=== PATIENT | male | born 1965 | race Caucasian/White ===

== ENCOUNTER 2016-08-25 09:14 | Day surgery (SDC) | payer SELFPAY ==
[~2016-08-25] VITALS: Ht 172.7 cm
[~2016-08-25 09:14] MED LIST: KLONOPIN DPS1 MG PO; LIBRIUM-DPS25 MG PO; TYLENOL DPS325 MG PO; ULTRAM DPS50 MG PO
--- NOTE | 2016-09-02 08:02 | OR ---
ADMIT: 08/25/2016 RM/LOC: [facility] MR#: [id number] 26[address] [facility] [address] [place], [place] [address] YONNY STEWART [address] [place] [address] Operative/Delivery Room Report SEX: M AGE: 51 : 1965 SURGERY DATE: 08/25/2016 SURGEON: Valentino Beyer MD HIM ASSISTANT: None. PREOPERATIVE DIAGNOSES: 1. Bilateral shoulder arthritis. 2. Chronic shoulder pain. POSTOPERATIVE DIAGNOSES: 1. Bilateral shoulder arthritis. 2. Chronic shoulder pain. OPERATION: Bilateral shoulder joint injection, anterior approach. INDICATIONS FOR PROCEDURE: The patient is a pleasant gentleman with history of chronic bilateral shoulder pain secondary to above-mentioned diagnoses, come here for planned bilateral shoulder joint injection. ANESTHESIA: Local without sedation. ESTIMATED BLOOD LOSS: Zero. COMPLICATIONS: None immediately evident. DESCRIPTION OF THE PROCEDURE: After patient was seen in preoperative area, vital signs were taken. Prior to procedure, the risks, benefits, and alternative therapies were discussed at length. Patient consent was obtained and updated. The patient was taken to Fluoroscopy Suite and placed on a fluoroscopy table in a prone position. Pressure points were padded to comfort, monitors applied and a timeout performed. C-arm was brought in to identify the right shoulder joint. Lidocaine plain, 1%, approximately 1 mL was used to anesthetize the skin, underlying subcutaneous tissue. A 3.5 inch 22-gauge curved-tip needle was then advanced through the anesthetized skin and placed into the right shoulder joint space. Isovue-300 was injected into joint and showed good spread into the shoulder joint. After correct placement was confirmed, 3 mL of 1% lidocaine and 40 mg ADMIT: 08/25/2016 RM/LOC: [facility] MR#: [id number] [place] [address] [place] [id number] YONNY STEWART [address] [place] [address] Operative/Delivery Room Report SEX: M AGE: 51 : 1965 of Depo-Medrol were injected. Then moved on to the left side and repeated the same procedure. The patient tolerated the procedure well without any complications. The patient was then brought to PACU where he recovered nicely. PLAN: The patient was examined after the conclusion of the procedure and had 80% reduction of pain. Discharge instructions were given, followup scheduled. The patient was discharged home with a driver guide. EDIT: 08/30/2016 1510 shaw Beyer MD/ kalee JOB #: [id number] CC: Valentino Beyer, Attending Physician . [facility] ([place], [place]), Family Physician
== END 2016-08-25 11:15 | disposition home or self-care (01) ==
LOC: SSS 09:14
PROC: 3E0U3BZ Introduction of Anesthetic Agent into Joints, Percutaneous Approach (ICD-10-PCS; principal; 2016-08-25)
PROC: 3E0U33Z Introduction of Anti-inflammatory into Joints, Percutaneous Approach (ICD-10-PCS; principal; 2016-08-25)
DX: G89.29 Other chronic pain (principal); M25.312 Other instability, left shoulder; M25.311 Other instability, right shoulder; M12.819 Other specific arthropathies, not elsewhere classified, unspecified shoulder; M53.3 Sacrococcygeal disorders, not elsewhere classified; F17.200 Nicotine dependence, unspecified, uncomplicated; I10 Essential (primary) hypertension; F25.9 Schizoaffective disorder, unspecified; Z79.899 Other long term (current) drug therapy; Z88.2 Allergy status to sulfonamides

== ENCOUNTER 2016-10-15 17:29 | Emergency (ER) | payer SELFPAY ==
--- NOTE | 2016-10-16 09:21 | ER ---
ADMIT: 10/15/2016 RM/LOC: ER [facility] MR#: [id number] [facility] [address] [place] [id number] YONNY STEWART [address] [place] [address] Emergency Room Report SEX: M AGE: 51 : 1965 DATE: 10/15/2016 TIME: 1729 hours. Please refer to my T-sheet for complete H and P. HISTORY OF PRESENT ILLNESS: Briefly, the patient comes with abdominal pain started about 9 this morning. He has been out of his proton pump inhibitor. He says it is a burning-type pain, nauseous. He has been maybe a little constipated. He has a history of chronic pain, bipolar, developmentally delayed. He smokes a pack of cigarettes a day. History of meth and substance abuse in the past. He says he has been clean for 3 weeks. PHYSICAL EXAMINATION: VITAL SIGNS: Blood pressure 146/103, pulse 70, respirations 16, temp 98.2, and sat 98%. GENERAL: No acute distress. HEENT: Grossly normal. LUNGS: Clear. HEART: Regular. ABDOMEN: Diffusely tender. He does not hurt right at McBurney's point. No rebound. No guarding. Nondistended. SKIN: No rash. EMERGENCY DEPARTMENT COURSE: I gave him a liter of normal saline bolus, Protonix 40 IV, Reglan 10 IV, actually had vast improvement. CBC was normal. Chemistries normal including liver functions. Lipase is normal. UA normal. I had a long discussion, ready for discharge. ASSESSMENT: 1. Abdominal pain. 2. Nicotine abuse. 3. Chronic pain. PLAN: I am going to put him on Zantac as he does not have funds to pay for his medicines 150 daily p.r.n. Cut back his nicotine and caffeine and return if worse. Fluids. See [facility] next week, recheck. Taz Gray MD/ kalee JOB #: [id number] CC: Taz Gray MD, Attending Physician Quincy Higuera MD, Family Physician
== END 2016-10-15 19:43 | disposition home or self-care (01) ==
LOC: ER 17:29
DX: R10.9 Unspecified abdominal pain (principal); G89.29 Other chronic pain; F31.9 Bipolar disorder, unspecified; F17.210 Nicotine dependence, cigarettes, uncomplicated; Z88.2 Allergy status to sulfonamides; Z79.899 Other long term (current) drug therapy

== ENCOUNTER 2016-12-01 07:26 | Day surgery (SDC) | payer SELFPAY ==
[~2016-12-01] VITALS: Ht 172.7 cm
--- NOTE | 2016-12-02 08:22 | OR ---
ADMIT: 12/01/2016 RM/LOC: [facility] MR#: [id number] [address] [address] [facility] [address] [place] [id number] Operative/Delivery Room Report SEX: M AGE: 51 : 1965 SURGERY DATE: 12/01/2016 SURGEON: Valentino Beyer MD SR. MANAGER MARKETING: None. PREOPERATIVE DIAGNOSES: 1. Bilateral shoulder arthritis. 2. Bilateral shoulder pain. POSTOPERATIVE DIAGNOSES: 1. Bilateral shoulder arthritis. 2. Bilateral shoulder pain. OPERATION: Bilateral shoulder joint injection, anterior approach. INDICATIONS FOR PROCEDURE: The patient is a pleasant gentleman with history of chronic bilateral shoulder pain secondary to the above-mentioned diagnoses, comes here for planned bilateral shoulder injection. ANESTHESIA: Local without sedation. ESTIMATED BLOOD LOSS: Zero. COMPLICATIONS: None immediately evident. DESCRIPTION OF THE PROCEDURE: After patient was seen in preoperative area, vital signs were taken. Prior to procedure, the risks, benefits, and alternative therapies were discussed at length. Patient consent was obtained and updated. The patient was taken to Fluoroscopy Suite and placed on a fluoroscopy table in a prone position. Pressure points were padded to comfort, monitors applied and a timeout performed. C-arm was brought in to identify the right shoulder joint. Lidocaine plain, 1%, approximately 1 mL was used to anesthetize the skin, underlying subcutaneous tissue. A 3.5 inch 22-gauge curved-tip needle was then advanced through the anesthetized skin and placed into the right shoulder joint space. ADMIT: 12/01/2016 RM/LOC: [facility] MR#: [id number] [address] [address] YONNY STEWART [address] [place] [address] Operative/Delivery Room Report SEX: M AGE: 51 : 1965 Isovue-300 was injected into joint and showed good spread into the shoulder joint. After correct placement was confirmed, 3 mL of 1% lidocaine and 40 mg of Depo-Medrol were injected. Then moved down to the left side and repeated the same procedure. The patient tolerated the procedure well without any complications. The patient was then brought to PACU where he recovered nicely. PLAN: The patient was examined after the conclusion of the procedure and had 80% reduction of pain. Discharge instructions were given, followup scheduled. The patient was discharged home with a chassis driver. Valentino Beyer MD/ kalee JOB #: [id number] CC: Valentino Beyer, Attending Physician FAMILY PHYSICIAN, Family Physician
== END 2016-12-01 09:00 | disposition home or self-care (01) ==
LOC: SSS 07:26
DX: G89.29 Other chronic pain (principal); M19.011 Primary osteoarthritis, right shoulder; M19.012 Primary osteoarthritis, left shoulder; M25.312 Other instability, left shoulder; M25.311 Other instability, right shoulder; I10 Essential (primary) hypertension; J44.9 Chronic obstructive pulmonary disease, unspecified; F25.9 Schizoaffective disorder, unspecified; F17.200 Nicotine dependence, unspecified, uncomplicated; Z88.2 Allergy status to sulfonamides; Z79.899 Other long term (current) drug therapy